=== PATIENT | male | born 1980 | race Two or more races ===

== ENCOUNTER 2021-01-04 09:43 | Outpatient (REF) | payer OTHER, SELFPAY ==
[2021-01-04 10:04] LABS: COVID-19 Test Negative (Negative)
== END 2021-01-04 09:44 | disposition home or self-care (01) ==
LOC: HO.LAB 09:43
PROVIDERS: Visit Provider Internal Medicine
DX: Z20.822 Contact with and (suspected) exposure to COVID-19 (principal)
CPT/HCPCS: 36415; 87635; C9803

== ENCOUNTER 2021-05-18 14:21 | Outpatient (REF) | payer OTHER, SELFPAY | END 2021-05-18 14:22 | disposition home or self-care (01) | LOC: HO.LAB 14:21 | PROVIDERS: Visit Provider Internal Medicine | DX: Z20.822 Contact with and (suspected) exposure to COVID-19 (principal) | CPT/HCPCS: C9803; U0003; U0005 ==

== ENCOUNTER 2021-05-28 13:46 | Outpatient (REF) | payer OTHER, SELFPAY ==
[2021-05-28 14:36] LABS: COVID-19 Test Negative (Negative)
== END 2021-05-28 13:47 | disposition home or self-care (01) ==
LOC: HO.LAB 13:46
PROVIDERS: Visit Provider Internal Medicine
DX: Z20.822 Contact with and (suspected) exposure to COVID-19 (principal)
CPT/HCPCS: 36415; 87635; C9803

== ENCOUNTER 2021-08-24 11:27 | Outpatient (REF) | payer SELFPAY ==
[2021-08-24 14:34] LABS: Binax Internal Control QC Valid; Binax Lot number: 9864; Binax Now Covid-19 Ag Negative (Negative)
== END 2021-08-24 11:28 | disposition home or self-care (01) ==
LOC: HO.LAB 11:27
PROVIDERS: Visit Provider Internal Medicine
DX: Z20.822 Contact with and (suspected) exposure to COVID-19 (principal)
CPT/HCPCS: 36415

== ENCOUNTER 2024-01-24 09:30 | Outpatient (AMB) | payer OTHER, SELFPAY ==
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
[2024-01-24 09:34] VITALS: BP 116/70; PULSE 59; RESP 14; TEMP 36.5; O2SAT 98; BMI 29.2
== END 2024-01-24 10:39 | disposition home or self-care (01) ==
PROVIDERS: PCP Internal Medicine; Visit Provider Nurse Practitioner Family
DX: R06.2 Wheezing (principal); F19.10 Other psychoactive substance abuse, uncomplicated; F33.1 Major depressive disorder, recurrent, moderate; R06.81 Apnea, not elsewhere classified; F41.1 Generalized anxiety disorder
CPT/HCPCS: 90471; 90715; 99203; 99386

== ENCOUNTER 2024-01-31 11:09 | Outpatient (AMB) | payer OTHER, SELFPAY ==
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
== END 2024-01-31 11:10 | disposition home or self-care (01) ==
LOC: HO.HMGFM 11:09
PROVIDERS: PCP Internal Medicine; Visit Provider Nurse Practitioner Family
DX: S22.080A Wedge compression fracture of T11-T12 vertebra, initial encounter for closed fracture (principal); V89.9XXA Person injured in unspecified vehicle accident, initial encounter; Z48.02 Encounter for removal of sutures; Z04.3 Encounter for examination and observation following other accident; S05.91XA Unspecified injury of right eye and orbit, initial encounter; M79.5 Residual foreign body in soft tissue
CPT/HCPCS: 15853; 99204

== ENCOUNTER 2024-01-31 12:00 | Outpatient (REF) | payer OTHER, SELFPAY ==
[2024-01-31 14:51] LABS: Estimated Average Glucose 111 mg/dL; Hemoglobin A1c % 5.5 % (<6.0)
[2024-01-31 14:59] LABS: Alanine Aminotransferase 14 U/L (0-40); Albumin Level 4.4 g/dL (3.5-5.0); Alkaline Phosphatase 148 U/L (39-117); Anion Gap 12 (12-20); Aspartate Amino Transferase 12 U/L (5-37); Bilirubin Total 0.2 mg/dL (0.0-1.0); Blood Urea Nitrogen 7 mg/dL (9-16); Calcium 9.7 mg/dL (8.4-10.2); Carbon Dioxide 25 mmol/L (22-29); Chloride 105 mmol/L (96-108); Estimated Glomerular Filt Rate > 60; Glucose Random 197 mg/dL (60-115); Potassium 3.9 mmol/L (3.3-5.1); Sodium 138 mmol/L (135-145); Total Protein 7.5 g/dL (6.5-8.0)
[2024-02-14 08:31] LABS: LDL Cholesterol Direct 126
[2024-02-14 08:32] LABS: PSA, Ultra Sensitive 1.03
== END 2024-01-31 12:01 | disposition home or self-care (01) ==
LOC: HO.WFDLDS 12:00
PROVIDERS: Visit Provider Nurse Practitioner Family
DX: Z00.00 Encounter for general adult medical examination without abnormal findings (principal); K21.9 Gastro-esophageal reflux disease without esophagitis; R06.81 Apnea, not elsewhere classified; F43.10 Post-traumatic stress disorder, unspecified
CPT/HCPCS: 36415; 80053; 82043; 82570; 83036; 83721; 84153

== ENCOUNTER 2024-02-16 10:25 | Outpatient (AMB) | payer OTHER, SELFPAY ==
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
[2024-02-16 10:35] VITALS: BP 130/72; PULSE 60; O2SAT 97; BMI 30.7
== END 2024-02-16 11:04 | disposition home or self-care (01) ==
PROVIDERS: PCP Nurse Practitioner Family; Visit Provider Nurse Practitioner Family
DX: S22.080S Wedge compression fracture of T11-T12 vertebra, sequela (principal); V89.9XXS Person injured in unspecified vehicle accident, sequela; F51.4 Sleep terrors [night terrors]; Z04.3 Encounter for examination and observation following other accident; F43.10 Post-traumatic stress disorder, unspecified
CPT/HCPCS: 99214

== ENCOUNTER 2024-02-16 11:25 | Outpatient (AMB) | payer OTHER, SELFPAY ==
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
[2024-02-16 14:46] VITALS: BP 130/72; PULSE 60; O2SAT 97; BMI 30.7
== END 2024-02-16 14:54 | disposition home or self-care (01) ==
LOC: HO.HMGFM 11:25
PROVIDERS: PCP Nurse Practitioner Family; Visit Provider Nurse Practitioner Family
DX: R06.2 Wheezing (principal); E66.9 Obesity, unspecified; K21.9 Gastro-esophageal reflux disease without esophagitis; Z68.30 Body mass index [BMI] 30.0-30.9, adult; R06.81 Apnea, not elsewhere classified; E78.5 Hyperlipidemia, unspecified
CPT/HCPCS: 99214; G2211

== ENCOUNTER → 2024-02-21 09:39 | Outpatient (REF) | payer OTHER, SELFPAY | LOC: HO.SL 09:39 | PROVIDERS: PCP Nurse Practitioner Family; Visit Provider Nurse Practitioner Family | DX: G47.33 Obstructive sleep apnea (adult) (pediatric) (principal) | CPT/HCPCS: 95806 ==

== ENCOUNTER 2024-02-23 11:26 | Outpatient (AMB) | payer OTHER, SELFPAY ==
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
[2024-02-23 11:44] VITALS: BP 118/76; PULSE 69; O2SAT 98
== END 2024-02-23 12:25 | disposition home or self-care (01) ==
PROVIDERS: PCP Nurse Practitioner Family; Visit Provider Nurse Practitioner Family
DX: S22.080S Wedge compression fracture of T11-T12 vertebra, sequela (principal); V89.9XXS Person injured in unspecified vehicle accident, sequela
CPT/HCPCS: 99213; G2211

== ENCOUNTER 2024-03-05 13:44 | Outpatient (AMB) | payer OTHER, SELFPAY ==
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
== END 2024-03-05 14:25 | disposition home or self-care (01) ==
LOC: HO.HOP 13:44
PROVIDERS: PCP Nurse Practitioner Family; Visit Provider Clinical Nurse Specialist Psychiatric/Mental Health
DX: F51.4 Sleep terrors [night terrors] (principal); F43.10 Post-traumatic stress disorder, unspecified
CPT/HCPCS: 90792

== ENCOUNTER → 2024-03-05 13:44 | Outpatient (BNVA) | payer OTHER, SELFPAY | PROVIDERS: PCP Nurse Practitioner Family; Visit Provider Clinical Nurse Specialist Psychiatric/Mental Health | DX: F51.4 Sleep terrors [night terrors] (principal); F43.10 Post-traumatic stress disorder, unspecified | CPT/HCPCS: 90792 ==

== ENCOUNTER 2024-04-17 10:28 | Outpatient (AMB) | payer OTHER, SELFPAY ==
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
[2024-04-17 10:39] VITALS: BP 132/68; PULSE 81; O2SAT 95; BMI 29.9
== END 2024-04-17 11:11 | disposition home or self-care (01) ==
PROVIDERS: PCP Nurse Practitioner Family; Visit Provider Nurse Practitioner Family
DX: F43.10 Post-traumatic stress disorder, unspecified (principal); V89.9XXS Person injured in unspecified vehicle accident, sequela; F51.4 Sleep terrors [night terrors]; S22.080S Wedge compression fracture of T11-T12 vertebra, sequela
CPT/HCPCS: 99214

== ENCOUNTER 2024-10-29 11:28 | Outpatient (AMB) | payer OTHER, SELFPAY ==
--- NOTE | 2024-10-29 11:30 | A.OFFPC_ITS ---
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 you are with other smokers? ? Let all of your friends, family, and co-workers know of your plan to stop smoking and your quit date. Just being aware that they know what you're going through can be helpful, especially when you are grumpy. ? Get rid of all your cigarettes just before the quit date, and clean out anything that smells like smoke, such as clothes and furniture. Make a plan about what you will do instead of smoking at those times when you are most likely to smoke. ? Be as specific as possible. For example, drink tea instead of coffee -- tea may not trigger the desire for a cigarette. Or, take a walk when you feel stressed. ? Remove ashtrays and cigarettes from the car. Place pretzels or hard candies there instead. Pretend-smoke with a straw. ? Find activities that focus your hands and mind but are not taxing or fattening. Computer games, solitaire, knitting, sewing, and crossword puzzles may help. ? If you normally smoke after eating, find other ways to end a meal. Play a tape or CD, eat a piece of fruit, get up and make a phone call, or take a walk (a good distraction that also rogel calories). Make other changes in your lifestyle. ? Change your daily schedule and habits. Eat at different times or eat several small meals instead of three large ones. Sit in a different chair or even a different room. ? Satisfy your oral habits by eating celery or other low-calorie snack, chewing sugarless gum, or sucking on a cinnamon stick. ? Go to public places and restaurants where smoking is prohibited or restricted. ? Eat regular meals and don't eat too much candy or sweet things. ? Get more exercise. Take walks or ride a bike. Exercise helps relieve the urge to smoke. Set short-term quitting goals and reward yourself when you meet them. ? Every day, put the money you normally spend on cigarettes in a jar. Then buy something pleasurable after a period of time. ? Try not to think about all the days ahead you will need to avoid smoking. Take it one day at a time. ? Even one puff or one cigarette will make your desire for more cigarettes even stronger. However, it is normal to make mistakes. So even if you have one cigarette, you don't need to take the next one. Other tips to help you quit smoking and stick to it: ? Enroll in a smoking cessation program (hospitals, health departments, community centers, and work sites often offer programs). Learn about self-hypnosis or other techniques. ? Ask your health care provider about prescription medications that are safe and appropriate for you. ? Find out about nicotine patches, gum, and sprays. The [place] [employer]'s web site -- www.cancer.org -- is an excellent resource for smokers who are trying to quit, and the [employer] [place] [employer] can help some smokers kick the habit. Above all, don't get discouraged if you aren't able to quit smoking the first time. Nicotine addiction is a hard habit to break. Try something different next time. Develop new strategies, and try again. Many people take several attempts to finally kick the habit. (14) COPD (chronic obstructive pulmonary disease): Code(s): J44.9 - Chronic obstructive pulmonary disease, unspecified Category: Medical Qualifiers: COPD type: chronic bronchitis Chronic bronchitis type: simple Qual ified Code(s): J41.0 - Simple chronic bronchitis Plan . Orders: Orders RT PSG in-lab sleep titration Today G47.33 - Obstructive sleep apnea (adult) (pediatric), G47.34 - Idiopathic sleep related nonobstructive alveolar hypoventilation Influenza [id number] Immunization Today Z23 - Encounter for immunization Referrals General Surgery Referral L02.811 - Cutaneous abscess of head [any part, except face] Sleep Medicine Referral G47.33 - Obstructive sleep apnea (adult) (pediatric), G47.34 - Idiopathic sleep related nonobstructive alveolar hypoventilation Medications: New omeprazole 40 mg PO DAILY 90 caps 2RF fluticasone furoate 50 mcg/actuation (Arnuity Ellipta) 1 inh inhalation Q24H 30 ea 12RF Refilled duloxetine (Cymbalta) 30 mg PO DAILY 90 caps 2RF prazosin 1 mg PO BEDTIME 90 caps 2RF Discontinued omeprazole Discontinued Reason: Doctor's Order 20 mg PO DAILY 90 caps 0RF Patient Instructions: Disability Benefits The [place] [facility] ([facility]) can help you understand how w orking may affect your benefits. Understanding your disability benefits can be complicated, but you can work and still receive benefits. The [facility] is part of the solution to this process and can help you reach your goal of financial independence. Your local Vocational Rehabilitation Office and [employer] is often the best place to get information. [facility] Disability Determination Services (DDS) is a division of the [place] [employer] Commission which is 100% funded by the Social Security Administration (SSA). [facility] Disability Examiners and medical consultants determine eligibility of [place] applicants for two disability programs: Social Security Disability Insurance (SSDI) - ages 18- 65 and Supplemental Security Income (SSI) - ages - 65. [facility] Disability Determination Services (DDS) is a division of the [place] [employer] ([facility]), which is 100% funded by the Social Security Administration (SSA). Who we are and what we do [facility] disability examiners and medical consultants determine eligibility of [place] applicants for 2 disability programs: Social Security Disability Insurance (SSDI), ages 18 - 65 Supplemental Security Income (SSI), ages - 65 If you think you may be eligible for payments, call to file a claim or contact your local Social Security Office . You must contact the Social Security Administration to apply for benefits. If you are looking for an online application for either SSDI or SSI visit ssa.gov. For an update on case status call the [employer] (VDE) as identified in your introductory claimant letter. Looking for an overview of annual benefits for their case [facility].gov or The claims processed by the [facility] include: Initial applications Reconsideration applications ? First appeal of a denied initial application Continuing Disability Reviews ? Periodic reviews to determine if you should continue receiving benefits Disability Hearings ? Mfwt-mm-wsum informal hearing as a part of the appeal of a Continuing Disability Review cessation determination Special outreach efforts are made to homeless shelters and individuals diagnosed with HIV The [facility] has offices in [place] and [place]. Consultants at [facility] We employ more than 70 medical and psychological consultants in-house and more than 300 medical and psychological consultants throughout the [facility] to assist us in determining claimants' eligibility for disability benefits under Social Security. How to Contact [facility] Online File a claim on-line [email or web address] Phone: [place] Call [facility] [phone] Call [facility] [phone] [place] toll free [place] Call [facility] [phone] Call [facility] [phone] [place] toll free Call [facility] [phone] To file an initial claim with [facility] [place] Call [facility] [phone] To file an initial claim with [facility] Fax [place] or [phone] [place] Address [address], [address], [place] [address]
[2024-10-29 11:37] VITALS: BP 120/72; PULSE 69; RESP 12; TEMP 36.2; O2SAT 96; BMI 31.3
--- OUTSIDE RECORDS SUMMARY | 2024-10-29 14:16 | XMS_ITS | Clinical Summary ---
Author Organization [facility] Address [address] [place] [address] Care Team Providers Care Fire Dispatcher Name Role Phone Unavailable Primary Care Provider Unavailabl e Allergies Active Allergy Reactions Criticality Noted Date Comments Aspirin Hives 02/16/2024 Penicillin G Hives 02/16/2024 Medications clindamycin (Cleocin) 300 MG capsule Take 2 tabs (600mg) 1 hour prior to dental procedure 2 capsule 3 4 Active Additional Information Patient not taking.Reported on 03/13/2024 acetaminophen (Tylenol) 500 MG tablet Take 1 tablet (500 mg) by mouth every 6 (six) hours if needed for mild pain for up to 20 doses. 20 tablet Active Active Problems Problem Noted Date Diagnosed Date Non-restorable tooth 03/13/2024 Necrosis of dental pulp 02/16/2024 Severe dental caries 02/16/2024 Social History Tobacco Use Types Packs/Day Years Used Date Smoking Tobacco: Former Cigarettes Passive Smoke Exposure: Never Smokeless Tobacco: Former Tobacco Cessation:Counseling Given: No Alcohol Use Standard Drinks/Week Comments Defer 0 (1 standard drink = 0.6 oz pur e alcohol) Sex and Gender Information Value Date Recorded Sex Assigned at Male 02/16/2024 12:22 PM EDT Legal Sex Male 12:17 PM EDT Gender Identity Male 02/16/2024 12:22 PM EDT Sexual Orientation Straight 02/16/2024 12 :22 PM EDT Last Filed Vital Signs Vital Sign Reading Time Taken Comments Blood Pressure 120/82 03/13/2024 9:56 AM EDT Pulse - - Temperature - - Respiratory Rate - - Oxygen Saturation - - Inhaled Oxygen Concentration - - Weight - - Height - - Body Mass Index - - Plan of Treatment Health Maintenance Due Date Last Done Comments Dental Oral Exam 1982 Dental Prophylaxis 1982 Dental X-Ray: Bitewings 1982 Dental X-Ray: Full Mouth 1982 Depression Screening 1982 HIV Screening 1982 Lipid Panel 1982 SDOH Screening 1982 Alcohol/Substance Use Screening 1994 Family Planning (PISQ) 1997 Hepatitis C Screening 2000 Hepatitis B Vaccines (1 of 3 - 19+ 3-dose series) 2001 COVID-19 Vaccine (2 - 2023-2 5 season) 2024 10/09/2021 Influenza Vaccine (#1) 2024 , 10/09/2021 Tobacco Screening 03/13/2025 03/13/2024 Zoster Vaccines (1 of 2) 2032 DTaP/Tdap/Td Vaccines (2 - T d or Tdap) 01/23/2034 01/24/2024 RSV Patients and Patients Aged 60 years or older (1 - 1-dose 75+ series) 2057 HIB Vaccines Aged Out No longer eligi ble based on patient's age to complete this topic HPV Vaccines Aged Out No longer eligi ble based on patient's age to complete this topic Hepatitis A Vaccines Aged Out No long er eligible based on patient's age to complete this topic IPV Vaccines Aged Out No longer eligi ble based on patient's age to complete this topic Meningococcal Vaccine Aged Out No westley adan eligible based on patient's age to complete this topic Pneumococcal Vaccine: Pediatrics (0 to 5 Years) and At-Risk Patients (6 to 49) Years) Aged Out No longer eligible b ased on patient's age to complete this topic RSV under 20 months Aged Out No longe r eligible based on patient's age to complete this topic Rotavirus Vaccines Aged Out No longer eligible based on patient's age to complete this topic Insurance [facility] MEDICAID STAND ADULT
== END 2024-10-29 12:30 | disposition home or self-care (01) ==
LOC: HO.HMCFM 11:29
PROVIDERS: PCP Nurse Practitioner Family; Visit Provider Nurse Practitioner Family
DX: Z00.01 Encounter for general adult medical examination with abnormal findings (principal); J41.0 Simple chronic bronchitis; F33.1 Major depressive disorder, recurrent, moderate; F19.10 Other psychoactive substance abuse, uncomplicated; E66.9 Obesity, unspecified; Z68.31 Body mass index [BMI] 31.0-31.9, adult; K21.9 Gastro-esophageal reflux disease without esophagitis; G47.34 Idiopathic sleep related nonobstructive alveolar hypoventilation; G47.33 Obstructive sleep apnea (adult) (pediatric); F41.1 Generalized anxiety disorder; E78.5 Hyperlipidemia, unspecified; Z23 Encounter for immunization

== ENCOUNTER → 2024-10-29 11:28 | Outpatient (BNVA) | payer OTHER, SELFPAY | PROVIDERS: PCP Nurse Practitioner Family; Visit Provider Nurse Practitioner Family | DX: Z00.01 Encounter for general adult medical examination with abnormal findings (principal); Z23 Encounter for immunization; K21.9 Gastro-esophageal reflux disease without esophagitis; F33.1 Major depressive disorder, recurrent, moderate; G47.34 Idiopathic sleep related nonobstructive alveolar hypoventilation; F41.1 Generalized anxiety disorder; G47.33 Obstructive sleep apnea (adult) (pediatric); E78.5 Hyperlipidemia, unspecified; L02.811 Cutaneous abscess of head [any part, except face]; E66.9 Obesity, unspecified; Z68.31 Body mass index [BMI] 31.0-31.9, adult; F19.10 Other psychoactive substance abuse, uncomplicated; F43.10 Post-traumatic stress disorder, unspecified; J41.0 Simple chronic bronchitis; F17.200 Nicotine dependence, unspecified, uncomplicated; Z71.6 Tobacco abuse counseling; Z71.3 Dietary counseling and surveillance | CPT/HCPCS: 90471; 90656; 96127; 99212; 99396 ==

== ENCOUNTER 2024-11-05 13:34 | Outpatient (AMB) | payer OTHER, SELFPAY ==
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
[2024-11-05 13:36] VITALS: BP 137/84; BMI 30.6
--- OUTSIDE RECORDS SUMMARY | 2024-11-05 16:00 | XMS_ITS | Clinical Summary ---
Author Organization [facility] Address [address] [place] [address] Care Team Providers Care Philosophy Specialist Name Role Phone Unavailable Primary Care Provider [...] patient's age to complete this topic Insurance [facility]AL-[facility] MEDICAID STAND ADULT
== END 2024-11-05 13:50 | disposition home or self-care (01) ==
LOC: HO.HGS 13:34
PROVIDERS: PCP Nurse Practitioner Family; Referring Provider Nurse Practitioner Family; Visit Provider Surgery
DX: R22.0 Localized swelling, mass and lump, head (principal)
CPT/HCPCS: 99204

== ENCOUNTER → 2024-11-05 13:34 | Outpatient (BNVA) | payer OTHER, SELFPAY | PROVIDERS: PCP Nurse Practitioner Family; Referring Provider Nurse Practitioner Family; Visit Provider Surgery | DX: R22.0 Localized swelling, mass and lump, head (principal) | CPT/HCPCS: 99202 ==

== ENCOUNTER 2024-11-11 10:56 | Outpatient (REF) | payer OTHER, SELFPAY | END 2024-11-11 10:57 | disposition home or self-care (01) | LOC: HO.LAB 10:56 | PROVIDERS: PCP Nurse Practitioner Family; Visit Provider Surgery | DX: R22.0 Localized swelling, mass and lump, head (principal) | CPT/HCPCS: 11422; 88304; 88305; J2004 ==

== ENCOUNTER 2024-11-11 10:56 | Outpatient (AMB) | payer OTHER, SELFPAY ==
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
== END 2024-11-11 11:31 | disposition home or self-care (01) ==
LOC: HO.HGS 10:57
PROVIDERS: PCP Nurse Practitioner Family; Visit Provider Surgery
DX: L72.0 Epidermal cyst (principal)
CPT/HCPCS: 11422

== ENCOUNTER 2024-11-25 13:19 | Outpatient (AMB) | payer OTHER, SELFPAY ==
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
--- OUTSIDE RECORDS SUMMARY | 2024-11-25 15:49 | XMS_ITS | Clinical Summary ---
Author Organization [facility] Address [address] [place] [address] Care Team Providers Care Radiological Health Specialist Name Role Phone Unavailable Primary Care [...] patient's age to complete this topic Insurance [facility]AL-[facility] MEDICAID STAND ADULT
== END 2024-11-25 13:28 | disposition home or self-care (01) ==
LOC: HO.HGS 13:20
PROVIDERS: PCP Nurse Practitioner Family; Visit Provider Surgery
DX: Z48.89 Encounter for other specified surgical aftercare (principal)
CPT/HCPCS: 99024

== ENCOUNTER → 2024-11-25 13:19 | Outpatient (BNVA) | payer OTHER, SELFPAY | PROVIDERS: PCP Nurse Practitioner Family; Visit Provider Surgery | DX: Z48.02 Encounter for removal of sutures (principal); Z98.890 Other specified postprocedural states | CPT/HCPCS: 99212 ==

== ENCOUNTER → 2024-11-27 20:30 | Outpatient (REF) | payer OTHER, SELFPAY ==
--- OUTSIDE RECORDS SUMMARY | 2024-11-27 21:37 | XMS_ITS | Clinical Summary ---
Author Organization [facility] Address [address] [place] [address] Care Team Providers Care Nursing Teacher Name Role Phone Unavailable Primary Care Provider [...] patient's age to complete this topic Insurance DENTAL-[facility] MEDICAID STAND ADULT
== END ==
LOC: HO.SL 20:30
PROVIDERS: PCP Nurse Practitioner Family; Visit Provider Nurse Practitioner Family
DX: G47.33 Obstructive sleep apnea (adult) (pediatric) (principal); G47.34 Idiopathic sleep related nonobstructive alveolar hypoventilation
CPT/HCPCS: 95811

== ENCOUNTER → 2024-11-27 20:30 | Outpatient (BNV) | payer OTHER, SELFPAY | PROVIDERS: PCP Nurse Practitioner Family; Visit Provider Internal Medicine | DX: G47.33 Obstructive sleep apnea (adult) (pediatric) (principal); R09.02 Hypoxemia | CPT/HCPCS: 95811 ==

== ENCOUNTER → 2024-12-04 07:26 | Outpatient (BNV) | payer OTHER, SELFPAY ==
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
== END ==
PROVIDERS: PCP Nurse Practitioner Family; Visit Provider Nurse Practitioner Family
DX: G47.33 Obstructive sleep apnea (adult) (pediatric) (principal)
CPT/HCPCS: 99212; G2211

== ENCOUNTER 2025-05-27 11:23 | Outpatient (AMB) | payer OTHER, SELFPAY ==
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
[2025-05-27 11:38] VITALS: BP 124/64; PULSE 66; O2SAT 97; BMI 29.9
--- OUTSIDE RECORDS SUMMARY | 2025-05-27 14:21 | XMS_ITS | Clinical Summary ---
Author Organization [facility] Address [address] [place] [address] Care Team Providers Care Specialty Cook Name Role Phone Unavailable Primary Care Provider [...] 1982 Lipid Panel 1982 SDOH Screening 1982 Disability Screening 1982 Alcohol/Substance Use Screening 1994 Family Planning (PISQ) 1997 HPV Vaccines (1 - Male 3-dos e series) 1997 Hepatitis C Screening 2000 Hepatitis B Vaccines (1 of 3 - 19+ 3-dose series) 2001 Tobacco Screening 03/13/2025 03/13/2024 COVID-19 Vaccine (2 - 2024-2 6 season) 2025 10/09/2021 Influenza Vaccine (#1) 2025 , 10/09/2021 Zoster Vaccines (1 of 2) 2032 DTaP/Tdap/Td [...] patient's age to complete this topic Meningococcal B Vaccine Aged Out No l onger eligible based on patient's age to complete this topic Meningococcal Vaccine Aged Out No westley adan eligible based on patient's age to complete this topic Pneumococcal Vaccine: Pediatrics (0 to 5 Years) and At-Risk Patients (6 to 49) Years Aged Out No longer eligible b ased on patient's age to complete this topic RSV under 20 months Aged Out No longe r eligible based on patient's age to complete this topic Rotavirus Vaccines Aged Out No longer eligible based on patient's age to complete this topic [facility] ST[facility] AD[facility]
== END 2025-05-27 12:05 | disposition home or self-care (01) ==
LOC: HO.HMCFM 11:24
PROVIDERS: PCP Nurse Practitioner Family; Visit Provider Nurse Practitioner Family
DX: R32 Unspecified urinary incontinence (principal); R15.9 Full incontinence of feces; R41.89 Other symptoms and signs involving cognitive functions and awareness; G47.33 Obstructive sleep apnea (adult) (pediatric); V89.9XXS Person injured in unspecified vehicle accident, sequela; S22.080S Wedge compression fracture of T11-T12 vertebra, sequela; W19.XXXA Unspecified fall, initial encounter; Z23 Encounter for immunization; F43.10 Post-traumatic stress disorder, unspecified; F33.1 Major depressive disorder, recurrent, moderate; G47.34 Idiopathic sleep related nonobstructive alveolar hypoventilation; F17.200 Nicotine dependence, unspecified, uncomplicated

== ENCOUNTER → 2025-05-27 11:23 | Outpatient (BNVA) | payer OTHER, SELFPAY | PROVIDERS: PCP Nurse Practitioner Family; Visit Provider Nurse Practitioner Family | DX: R15.9 Full incontinence of feces (principal); R32 Unspecified urinary incontinence; R41.89 Other symptoms and signs involving cognitive functions and awareness; G47.33 Obstructive sleep apnea (adult) (pediatric); F43.10 Post-traumatic stress disorder, unspecified; F33.1 Major depressive disorder, recurrent, moderate; G47.34 Idiopathic sleep related nonobstructive alveolar hypoventilation; F17.200 Nicotine dependence, unspecified, uncomplicated; Z23 Encounter for immunization; S22.080S Wedge compression fracture of T11-T12 vertebra, sequela; V89.9XXS Person injured in unspecified vehicle accident, sequela; Z91.81 History of falling | CPT/HCPCS: 90471; 90656; 99212 ==

== ENCOUNTER 2025-07-01 13:25 | Outpatient (REF) | payer OTHER, SELFPAY ==
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
== END 2025-07-01 13:26 | disposition home or self-care (01) ==
LOC: HO.XRAY 13:25
PROVIDERS: PCP Nurse Practitioner Family; Visit Provider Nurse Practitioner Family
DX: S22.080S Wedge compression fracture of T11-T12 vertebra, sequela (principal); M47.817 Spondylosis without myelopathy or radiculopathy, lumbosacral region; M51.360 Other intervertebral disc degeneration, lumbar region with discogenic back pain only; M53.3 Sacrococcygeal disorders, not elsewhere classified; Z98.890 Other specified postprocedural states; V89.2XXS Person injured in unspecified motor-vehicle accident, traffic, sequela
CPT/HCPCS: 72110; 73502; 99202

== ENCOUNTER 2025-07-01 13:25 | Outpatient (AMB) | payer OTHER, SELFPAY ==
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
[2025-07-01 13:42] VITALS: BP 129/76; PULSE 61; O2SAT 100; BMI 29.9
--- OUTSIDE RECORDS SUMMARY | 2025-07-01 15:04 | XMS_ITS | Clinical Summary ---
Author Organization [facility] Address [address] [place] [address] Care Team Providers Care Statistical Programmer Name Role Phone Unavailable Primary Care Provider [...] patient's age to complete this topic Insurance [facility] MEDICA[facility] STAND ADULT
== END 2025-07-01 14:08 | disposition home or self-care (01) ==
LOC: HO.PMC 13:26
PROVIDERS: PCP Nurse Practitioner Family; Visit Provider Nurse Practitioner Family
DX: M54.50 Low back pain, unspecified (principal); G89.29 Other chronic pain; Z98.890 Other specified postprocedural states; S22.080S Wedge compression fracture of T11-T12 vertebra, sequela; M51.369 Other intervertebral disc degeneration, lumbar region without mention of lumbar back pain or lower extremity pain; M47.817 Spondylosis without myelopathy or radiculopathy, lumbosacral region; M53.3 Sacrococcygeal disorders, not elsewhere classified
CPT/HCPCS: 99204

== ENCOUNTER → 2025-07-01 14:16 | Outpatient (BNV) | payer OTHER, SELFPAY | PROVIDERS: PCP Nurse Practitioner Family; Visit Provider Radiology Diagnostic Radiology | DX: S22.080S Wedge compression fracture of T11-T12 vertebra, sequela (principal) | CPT/HCPCS: 72110; 73502 ==